=== PATIENT | male | born 1955 | race Caucasian/White ===

== ENCOUNTER 2017-07-25 22:23 | Observation (INO) | payer BC ==
[2017-07-26] LABS: Hematocrit 39 % (42-52); Mean Corpuscular HGB Conc 34 g/dl (31-36); Mean Corpuscular Hemoglobin 30 pg (27-31); Mean Corpuscular Volume 88 fL (80-94); Mean Platelet Volume 8 um3 (7.4-10.4); Red Blood Count 4.37 10^6/ul (4.0-5.4); Red Cell Distribution Width 15 % (10.5-15); White Blood Count 10.3 10^3/ul (3.5-10.8)
[2017-07-26 00:12] LABS: Albumin 3.9 g/dL (3.2-5.2); BUN/Creatinine Ratio 17.3 (8-20); Calcium 9.2 mg/dL (8.6-10.3); EGFR African American 123.8 (>60); EGFR Non-African American 96.2 (>60); Globulin 2.3 g/dL (2-4); Magnesium 1.9 mg/dL (1.9-2.7); Potassium 3.8 mmol/L (3.5-5.0); Total Bilirubin 0.7 mg/dL (0.2-1.0); Total Protein 6.2 g/dL (6.4-8.9)
--- NOTE | 2017-07-26 00:14 | ED ---
Shiela Long Emily, scribed for Thang Bray MD on 07/25/17 at 2258 . Adult Trauma - HPI Summary HPI Summary: This patient is a 62 year old M [facility] by family s/p fall that occurred at 2100. Pt reports slipping and hitting his head. Daughter reports pt losing consciousness for about 30 seconds. Pt sustained an injury while in EMS care [employer]. The patient rates the pain 2/10 in severity. Symptoms aggravated by nothing. Symptoms alleviated by nothing. Pt reports headache and R wrist pain. Patient reports flutter in heart just prior to fall. Pt reports previous injury to back while lifting heavy objects. PMHx includes MN. - History of Current Complaint Chief Complaint: EDHeadInjury Stated Complaint: FALL Time Seen by Provider: 07/25/17 22:43 Hx Obtained From: Patient, Family/Supervisor Molding Mechanism of Injury: Fall Loss of Consciousness: brief (seconds) Onset Severity: Mild Current Severity: Mild Pain Intensity: 2 Pain Scale Used: 0-10 Numeric Aggravating Factor(s): Nothing Alleviating Factor(s): Nothing Associated Signs & Symptoms: Positive: Other: - Headache - Allergy/Home Medications Allergies/Adverse Reactions: Allergies Allergy/AdvReac Type Severity Reaction Status Date / Time Sulfa Antibiotics Allergy PT CAN'T Verified 03/25/17 10:47 REMEMBER Fluoxetine [From Prozac] AdvReac manic Verified 03/25/17 10:47 NSAIDs AdvReac See Comment Verified 03/25/17 10:47 bees Allergy Anaphylatic Uncoded 03/25/17 10:47 Shock PMH/Surg Hx/FS Hx/Imm Hx Previously Healthy: No Endocrine/Hematology History: Reports: Other Endocrine/Hematological Disorders - Anemia Denies: Hx Anticoagulant Therapy, Hx Diabetes, Hx Thyroid Disease Cardiovascular History: Reports: Hx Hypercholesterolemia, Hx Hypertension, Hx Myocardial Infarction, Other Cardiovascular Problems/Disorders - Anemia; Unable to take NSAIDS d/t bleeding Denies: Hx Pacemaker/ICD Respiratory History: Denies: Hx Asthma, Hx Chronic Obstructive Pulmonary Disease (COPD) GI History: Denies: Hx Ulcer History: Reports: Hx Benign Prostatic Hyperplasia, Other Problems/ Disorders - Erectile dysfunction Denies: Hx Renal Disease Musculoskeletal History: Reports: Hx Arthritis, Hx Fibromyalgia, Hx Orthopedic Injury, Other Musculoskeletal History - disc herniation; shoulder injury Sensory History: Reports: Hx Contacts or Glasses, Hx Hearing Aid - DOESN'T WEAR ALL THE TIME Opthamlomology History: Reports: Hx Contacts or Glasses Neurological History: Reports: Hx Migraine, Other Neuro Impairments/Disorders - FIBROMYALGIA Psychiatric History: Denies: Hx Panic Disorder - Surgical History Surgery Procedure, Year, and Place: spinal stenosis - surgical repair 2001 L3- l5 ( LAMINECTOMY & MICRO DISCETOMY- 2013 @ [facility]). Rt SHOULDER - BONE SPUR REMOVED - 2011. Rt HAND - OSTEO ARTHRITIS- BASE OF THUMB EARLY 2015. SADIE KNEES - ARTHROSCOPIC. heart attack w/ stents 2006 Infectious Disease History: No Infectious Disease History: Reports: Hx of Known/Suspected MRSA Denies: Hx Clostridium Difficile, Hx Hepatitis, Hx Human Immunodeficiency Virus (HIV), Traveled Outside the [place] in Last 30 Days - Family History Known Family History: Positive: Diabetes - Social History Alcohol Use: Occasionally Hx Substance Use: Yes Substance Use Type: Reports: None Hx Tobacco Use: Yes Smoking Status (MU): Never Smoked Tobacco Review of Systems Positive: Other - "Flutter" in heart Positive: Other - R wrist pain Positive: Headache All Other Systems Reviewed And Are Negative: Yes Physical Exam Triage Information Reviewed: Yes Vital Signs On Initial Exam: Initial Vitals Temp Pulse Resp BP Pulse Ox 97 F 72 16 93/60 96 07/25/17 22:38 07/25/17 22:38 07/25/17 22:38 07/25/17 22:38 07/25/17 22:38 Vital Signs Reviewed: Yes Appearance: Positive: Well-Appearing, No Pain Distress Skin: Positive: Warm, Skin Color Reflects Adequate Perfusion, Dry, Other - Scratch on volar right wrist Head/Face: Positive: Normal Head/Face Inspection Eyes: Positive: Normal ENT: Positive: Normal ENT inspection Neck: Positive: Supple, Nontender Respiratory/Lung Sounds: Positive: Clear to Auscultation, Breath Sounds Present Cardiovascular: Positive: RRR Abdomen Description: Positive: Nontender, Soft Bowel Sounds: Positive: Present Musculoskeletal: Positive: Normal Neurological: Positive: Normal Psychiatric: Positive: Affect/Mood Appropriate - [place] Coma Scale Coma Scale Total: 15 Diagnostics - Vital Signs Vital Signs Temp Pulse Resp BP Pulse Ox 07/25/17 22:38 97 F 72 16 93/60 96 - Laboratory Lab Results: Lab Results 07/25/17 07/25/17 Range/Units 23:45 23:45 WBC 10.3 (3.5-10.8) 10^3/ul RBC 4.37 (4.0-5.4) 10^6/ul Hgb 13.0 L (14.0-18.0) g/dl Hct 39 L (42-52) % MCV 88 (80-94) fL MCH 30 (27-31) pg MCHC 34 (31-36) g/dl RDW 15 (10.5-15) % Plt Count 212 (150-450) 10^3/ul MPV 8 (7.4-10.4) um3 Neut % (Auto) 74.0 (38-83) % Lymph % (Auto) 17.2 L (25-47) % [place] % (Auto) 6.6 (1-9) % Eos % (Auto) 1.4 (0-6) % Baso % (Auto) 0.8 (0-2) % Absolute Neuts (auto) 7.6 (1.5-7.7) 10^3/ul Absolute Lymphs (auto) 1.8 (1.0-4.8) 10^3/ul Absolute Monos (auto) 0.7 (0-0.8) 10^3/ul Absolute Eos (auto) 0.1 (0-0.6) 10^3/ul Absolute Basos (auto) 0.1 (0-0.2) 10^3/ul Absolute Nucleated RBC 0.01 10^3/ul Nucleated RBC % 0 Lactic Acid 0.6 (0.5-2.0) mmol/L Result Diagrams: 07/25/17 23:45 Lab Statement: Any lab studies that have been ordered have been reviewed, and results considered in the medical decision making process. - Radiology CXR Radiology Interpretation Completed By: ED Physician - CXR read by ED physician reveals no acute changes. - CT Brain CT Interpretation Completed By: Radiologist - Brain CT read by radiologist reveals no acute rain parenchymal abnormality and no change since 01/04/16. No hemorrhage, mass or acute territorial infarct. Clear visualized paranasal sinuses. Visualized mastoid air cells clear. ED physician has read this report and agreed. - EKG 2334 Cardiac Rate: NL - 66 BPM EKG Rhythm: Sinus Rhythm Adult Trauma Course/Dx - Course Course Of Treatment: Mr. Lux felt a fluttering in his chest and then had a significant syncopal episode this evening. He hit his head and hurt his right wrist and is getting W/U'd for syncope and injury at this time. I suspect he will be admitted to the hospital for monitoring. - Diagnoses Provider Diagnoses: Syncope and collapse Discharge - Discharge Plan Condition: Stable Disposition: OTHER Discharge Disposition Comment: Change of shift The documentation as recorded by the Shiela harrison Emily accurately reflects the service I personally performed and the decisions made by me, Thang Bray MD.
[2017-07-26 00:42] LABS: TSH (Thyroid Stimulating Horm) 1.4 mcIU/mL (0.34-5.60)
[2017-07-26] MEDS ORDERED: CMCS: Melatonin (NF) 3 MG TAB PO PRN (02:40)
[2017-07-26] MEDS ORDERED: Ondansetron INJ* 2 MG/ML VIAL IV PRN (02:40)
[2017-07-26] MEDS ORDERED: Acetaminophen TAB* 325 MG PO PRN (02:40)
[2017-07-26] MEDS ORDERED: NS 0.9% 1000 ML* 1,000 ML IV SCH (02:45)
--- NOTE | 2017-07-26 02:51 | HP ---
H&P (Free Text) History and Physical: PCP: Meliza Knowles NP Date/Time: 07/26/2017 0240 CC: syncope, palpitations HPI: Mr Lux is a 62YO male HX CAD/ME who is highly somnolent unable to remain awake to answer more than one question at a time without tactile stimulation despite apparently not having received any sedating medications from ED. He was at home this evening walking into his kitchen when he felt a ' fluttering' in his chest and collapsed. His daughter witnessed the event and states he was unresponsive for less than a minute before coming to. He did hit his head, but denies chest pain, SOB, nausea, light-headeness, F/C, cough, congestion, focal W/N/T, change in speech/swallow, or other issues. EMS was called for transport. PMedHx CAD/ME HTN HLD hypertriglyceridemia fibromyalgia depression anxiety Ambulatory Orders Nursing to reconcile. Diazepam TAB(*) [Valium TAB(*)] 2 mg PO BID PRN 05/25/13 Methylphenidate ER TAB* [Concerta ER TAB*] 20 mg PO TID PRN 05/25/13 Rosuvastatin Calcium [Crestor] 20 mg PO DAILY 05/25/13 clonazePAM TAB(*) [KlonoPIN TAB(*)] 2 mg PO TID 05/25/13 Armodafinil [Nuvigil] 150 mg PO DAILY 01/04/16 Fenofibrate 130 mg PO DAILY 01/04/16 Lisinopril TAB* [Prinivil TAB*] 10 mg PO DAILY 01/04/16 Aspirin [Aspirin Adult Low Strengt] 81 mg PO DAILY 01/21/17 Cialis 01/21/17 Epinephrine [Epipen 2-Sandro] 01/21/17 Hydrocodone/Acetamin 10/325(NF [[place] 10/325 (NF)] 1 tab PO BID PRN 01/21/17 Cyclobenzaprine (NF) [Cyclobenzaprine 5 MG (NF)] 5 mg PO TID PRN 03/25/17 Allergies Sulfa Antibiotics Allergy (Verified 03/25/17 10:47) PT CAN'T REMEMBER Fluoxetine [From Prozac] Adverse Reaction (Verified 03/25/17 10:47) manic NSAIDs Adverse Reaction (Verified 05/24/17 10:47) See Comment pt states Unable to take d/t bleeding risk bees Allergy (Uncoded 03/25/17 10:47) Anaphylatic Shock SocHx: denies tobacco, ~6 beers/week alcohol, positive marijuana; going through a divorce, lives with his daughter; on disability for chronic LBP; full code status FamHx: Mother: "crazy"; Father: passed in his 90's 2nd complications of a fall ROS: as above, otherwise reviewed and all were negative vitals: Vital Signs Temp 36.1 C 07/25/17 22:38 Pulse 59 07/26/17 01:20 Resp 14 07/26/17 01:20 BP 99/66 07/26/17 01:19 Pulse Ox 93 07/26/17 01:20 Constitutional: NAD, normally developed, well-nourished white male HEENM: atraumatic; sclera/conjunctiva: non-icteric/clear; hearing: clinically intact; oropharynx: clear, mucosa moist Neck: soft tissue: non-tender; thyroid: normal Pulmonary: clear to auscultation bilaterally, good aeration, no accessory muscle use CV: RR/RR, normal S1S2, no carotid bruit, no jugular venous distention, 2+ B DP/ PT, no edema Abdominal: soft, non-distended, non-tender, no rebound/guarding/rigidity, normoactive bowel sounds, no hepatosplenomegaly or masses, no costovertebral angle tenderness Musculoskeletal: general: grossly intact, no palpable tenderness Integumental: normal appearance and texture of exposed skin Psychiatric orientation: somnolent, requires repetitive tactile stimulation to participate in H&P affect: calm mood: acquiescent eye contact: poor content: at least partially reliable responses: markedly slowed insight: poor Testing: Lab Results 07/25/17 07/25/17 07/25/17 Range/Units 23:45 23:45 23:45 WBC 10.3 (3.5-10.8) 10^3/ul RBC 4.37 (4.0-5.4) 10^6/ul Hgb 13.0 L (14.0-18.0) g/dl Hct 39 L (42-52) % MCV 88 (80-94) fL MCH 30 (27-31) pg MCHC 34 (31-36) g/dl RDW 15 (10.5-15) % Plt Count 212 (150-450) 10^3/ul MPV 8 (7.4-10.4) um3 Neut % (Auto) 74.0 (38-83) % Lymph % (Auto) 17.2 L (25-47) % [place] % (Auto) 6.6 (1-9) % Eos % (Auto) 1.4 (0-6) % Baso % (Auto) 0.8 (0-2) % Absolute Neuts (auto) 7.6 (1.5-7.7) 10^3/ul Absolute Lymphs (auto) 1.8 (1.0-4.8) 10^3/ul Absolute Monos (auto) 0.7 (0-0.8) 10^3/ul Absolute Eos (auto) 0.1 (0-0.6) 10^3/ul Absolute Basos (auto) 0.1 (0-0.2) 10^3/ul Absolute Nucleated RBC 0.01 10^3/ul Nucleated RBC % 0 INR (Anticoag Therapy) 0.95 (0.89-1.11) Sodium 137 (133-145) mmol/L Potassium 3.8 (3.5-5.0) mmol/L Chloride 106 (101-111) mmol/L Carbon Dioxide 25 (22-32) mmol/L Anion Gap 6 (2-11) mmol/L BUN 14 (6-24) mg/dL Creatinine 0.81 (0.67-1.17) mg/dL Est GFR ( Amer) 123.8 (>60) Est GFR (Non-Af Amer) 96.2 (>60) BUN/Creatinine Ratio 17.3 (8-20) Glucose 96 (70-100) mg/dL Lactic Acid (0.5-2.0) mmol/L Calcium 9.2 (8.6-10.3) mg/dL Magnesium 1.9 (1.9-2.7) mg/dL Total Bilirubin 0.70 (0.2-1.0) mg/dL AST 12 L (13-39) U/L ALT 8 (7-52) U/L Alkaline Phosphatase 42 (34-104) U/L Troponin I 0.00 (<0.04) ng/mL Total Protein 6.2 L (6.4-8.9) g/dL Albumin 3.9 (3.2-5.2) g/dL Globulin 2.3 (2-4) g/dL Albumin/Globulin Ratio 1.7 (1-3) TSH 1.40 (0.34-5.60) mcIU/mL 07/25/17 Range/Units 23:45 WBC (3.5-10.8) 10^3/ul RBC (4.0-5.4) 10^6/ul Hgb (14.0-18.0) g/dl Hct (42-52) % MCV (80-94) fL MCH (27-31) pg MCHC (31-36) g/dl RDW (10.5-15) % Plt Count (150-450) 10^3/ul MPV (7.4-10.4) um3 Neut % (Auto) (38-83) % Lymph % (Auto) (25-47) % [place] % (Auto) (1-9) % Eos % (Auto) (0-6) % Baso % (Auto) (0-2) % Absolute Neuts (auto) (1.5-7.7) 10^3/ul Absolute Lymphs (auto) (1.0-4.8) 10^3/ul Absolute Monos (auto) (0-0.8) 10^3/ul Absolute Eos (auto) (0-0.6) 10^3/ul Absolute Basos (auto) (0-0.2) 10^3/ul Absolute Nucleated RBC 10^3/ul Nucleated RBC % INR (Anticoag Therapy) (0.89-1.11) Sodium (133-145) mmol/L Potassium (3.5-5.0) mmol/L Chloride (101-111) mmol/L Carbon Dioxide (22-32) mmol/L Anion Gap (2-11) mmol/L BUN (6-24) mg/dL Creatinine (0.67-1.17) mg/dL Est GFR ( Amer) (>60) Est GFR (Non-Af Amer) (>60) BUN/Creatinine Ratio (8-20) Glucose (70-100) mg/dL Lactic Acid 0.6 (0.5-2.0) mmol/L Calcium (8.6-10.3) mg/dL Magnesium (1.9-2.7) mg/dL Total Bilirubin (0.2-1.0) mg/dL AST (13-39) U/L ALT (7-52) U/L Alkaline Phosphatase (34-104) U/L Troponin I (<0.04) ng/mL Total Protein (6.4-8.9) g/dL Albumin (3.2-5.2) g/dL Globulin (2-4) g/dL Albumin/Globulin Ratio (1-3) TSH (0.34-5.60) mcIU/mL ECG, personally reviewed: NSR rate 66, no ischema, elevated J-point in V2 CXR, personally reviewed: no acute process CT brain WO, personally reviewed: No acute brain parenchymal abnormality and no change since 01/04/16. No hemorrhage, mass, or acute territorial infarct. Clear visualized paranasal sinuses. Visualized mastoid air cells clear. Impression: 62M presenting with syncope associated with palpitations DIAGNOSIS & PLAN Primary syncope associated with palpitations : telemetry : trend troponin : check ECHO in AM : consider cardiology consult pending above results : supplemental oxygen : supportive care Secondary CAD/ME : review meds once reconciled HTN : review meds once reconciled HLD : review meds once reconciled hypertriglyceridemia : review meds once reconciled fibromyalgia : review meds once reconciled depression : review meds once reconciled anxiety : review meds once reconciled Admission Rational: CDU observation for syncopal work up DVTp: heparin SQ Code Status: full HCP: daughterGris
--- NOTE | 2017-07-26 05:48 | ED ---
Hanna Long Rebecca, scribed for Mike Hobbs on 07/26/17 at 0218 . Progress - Progress Note Progress Note: Pt was signed out from Dr. Bray, pending disposition, awaiting labs. - Results/Orders Results/Orders: Wrist XR, as read by ED physician, reveals no acute findings. Re-Evaluation - Re-Evaluation First Eval Re-Evaluation Time: 02:17 Comment: Discussed admission plan. Course/Dx - Course Course Of Treatment: Pt was signed out from Dr. Bray at shift change, pending disposition, awaiting labs. Upon lab work being returned, discussed care of pt with Dr. Oscar who accepts pt for admission. Pt will be admitted with Dx of syncope, palpitations and head injury. Pt's condition is stable and disposition is admitted. He understands and agrees. - Diagnoses Provider Diagnoses: Syncope, Palpitations, Head injury - Provider Notifications Discussed Care Of Patient With: Pankaj Oscar Time Discussed With Above Provider: 02:12 Instructed by Provider To: Other - Accepts pt for admission The documentation as recorded by the Hanna harrison Rebecca accurately reflects the service I personally performed and the decisions made by , Mike Hobbs.
[2017-07-26] MEDS ORDERED: Omeprazole CAP* 20 MG PO SCH (06:00)
--- NOTE | 2017-07-26 08:18 | PN ---
Subjective Date of Service: 07/26/17 Interval History: Mr. Lux reports a different story than that which was presented in the ED last evening. Per him, he has been under extreme stress due to issues with his divorce and raising his child. He also has an underlying anxiety disorder. Last night he had a panic attack and felt his normal discomfort in his chest that he has gotten in the past. He got up to walk into the kitchen and when he stepped onto the tile floor from the carpet, he slipped. He thinks he hit his head and was unconcious for perhaps 30 seconds. He remembers his daughter being there and asking her to call EMS. He states that he is feeling very well this morning and denies any complaint. He is eager for discharge to home. Objective Active Medications: Acetaminophen (Tylenol Tab*) 650 mg PO Q6H PRN Docusate Sodium (Colace Cap*) 200 mg PO BID JOSE Heparin Sodium (Porcine) (Heparin Vial(*)) 5,000 units SUBCUT Q8HR JOSE Sodium Chloride (Ns 0.9% 1000 Ml*) 1,000 mls @ 75 mls/hr IV PER RATE [facility] Melatonin (Melatonin (Nf)) 3 mg PO BEDTIME PRN; Protocol Omeprazole (Prilosec Cap*) 20 mg PO DAILY@0600 JOSE Ondansetron HCl (Zofran Inj*) 4 mg IV Q6H PRN Vital Signs: Temp Pulse Resp BP Pulse Ox 97.5 F 65 18 115/70 97 07/26/17 03:13 07/26/17 03:13 07/26/17 03:30 07/26/17 03:30 07/26/17 03:13 Oxygen Devices in Use Now: None Appearance: Male sitting up in chair in NAD Eyes: No Scleral Icterus Ears/Nose/Mouth/Throat: Mucous Membranes Moist Neck: Trachea Midline Respiratory: Symmetrical Chest Expansion and Respiratory Effort, Clear to Auscultation Cardiovascular: NL Sounds; No Murmurs; No JVD, No Edema Abdominal: NL Sounds; No Tenderness; No Distention Lymphatic: No Cervical Adenopathy Extremities: No Edema Skin: No Rash or Ulcers Neurological: Alert and Oriented x 3, NL Muscle Strength and Tone Nutrition: Taking PO's Result Diagrams: 07/25/17 23:45 07/25/17 23:45 Additional Lab and Data: . Assess/Plan/Problems-Billing Assessment: Mr. Lux is a 62 yo male with a PMH of CAD with FL, HTN, and HLD who was admitted on 07/25/17 with panic attack in which he fell and was unconcious. - Patient Problems (1) Syncope Comment: - No description of syncope given. - No echo needed, suspect symptoms all related to anxiety and panic attack. - Telemetry without evidence of arrhythmmia, trops negative (2) Palpitations Comment: - Suspect panic attack, symptoms consistent with history of patient's anxiety in the past. - Telemetry with SR, trops negative. (3) Anxiety Comment: - Though patient seemed sedated in the ED, patient's family states this is his normal behavior. - He is awake and alert now, denies any misuse of his medications. (4) CAD (coronary artery disease) Comment: - Continue aspirin. (5) Hypertension Comment: - Continue lisinopril. (6) Hyperlipidemia Comment: - Continue fenofibrate and rosuvastatin. (7) DVT prophylaxis Comment: - Heparin SQ. (8) Full code status Status and Disposition: OBV. Discharge to home.
--- NOTE | 2017-07-26 08:22 | RAD ---
Indication: Syncope. Real-time sonography of the brain was performed. Comparison is made with previous exam dated January 04, 2016. Ventricular structures are midline. No midline shift is noted. The extra-axial spaces are unremarkable. There is no evidence of intracranial mass or hemorrhage. No other high or low density lesions are identified. Mastoid air cells and paranasal sinuses are otherwise unremarkable. IMPRESSION: No intracranial mass or hemorrhage.
--- NOTE | 2017-07-26 08:22 | RAD ---
Indication: Right wrist injury 3 views of the wrist demonstrates no fracture. No other bone or joint abnormality is identified. Chondrocalcinosis is noted. IMPRESSION: NO FRACTURE OF THE WRIST IS NOTED.
--- NOTE | 2017-07-26 08:23 | RAD ---
Indication: Syncope. 2 views of the chest demonstrate no mediastinal shift. Heart is of normal size and configuration. Lung fontaine demonstrate no pleural fluid, pneumonia or pneumothorax. When compared to previous exam of January 04, 2016 no significant change is noted. IMPRESSION: No active cardiopulmonary disease is noted.
[2017-07-26] MEDS ORDERED: Docusate CAP* 100 MG PO SCH (09:00)
[2017-07-26] MEDS ORDERED: HYDROcodone/ACETAMIN 5-325 MG* 1 TAB PO PRN ×2 (09:12)
[2017-07-26 12:23] VITALS: BP 128/71
[2017-07-26] MEDS ORDERED: Hydrocodone/Acetamin 10/325 1 TAB PO PRN (12:33)
[2017-07-26] MEDS ORDERED: Methylphenidate ER TAB* 18 MG PO PRN (12:33)
[2017-07-26 13:20] LABS: Urine Bilirubin Negative (Negative); Urine Glucose Negative (Negative); Urine Nitrite Negative (Negative)
[2017-07-26] MEDS ORDERED: clonazePAM TAB(*) 1 MG PO SCH (14:00)
--- NOTE | 2017-07-27 00:08 | DS ---
CC: Jeri Knowles NP* HOSPITAL MEDICINE DISCHARGE SUMMARY: DATE OF ADMISSION: 07/25/17 DATE OF DISCHARGE: 07/26/17 PRIMARY CARE PHYSICIAN: Jeri Knowles NP ATTENDING PHYSICIAN: Jasmeet Strange MD* (dictation provided by Nelly Bowman NP) . PRIMARY DIAGNOSIS: Panic attack. SECONDARY DIAGNOSES: 1. History of anxiety. 2. History of coronary artery disease with myocardial infarction. 3. Hypertension. 4. Hyperlipidemia. 5. Hypertriglyceridemia. 6. Fibromyalgia. 7. Depression. MEDICATIONS: At the time of discharge: 1. Methylphenidate 20 mg p.o. daily p.r.n. The patient states he does not use this very often. 2. Armodafinil 150 mg p.o. daily. 3. Epinephrine as needed for allergic reaction. 4. Fenofibrate 130 mg p.o. daily. 5. Rosuvastatin 20 mg p.o. daily. 6. Aspirin 81 mg p.o. daily. 7. Hydrocodone with acetaminophen 10/325 one tab p.o. t.i.d. p.r.n. 8. Lisinopril 10 mg p.o. daily. 9. Clonazepam 2 mg p.o. t.i.d. HOSPITAL COURSE: Mr. Lux is a 62-year-old male with past medical history of anxiety who presented to the hospital after falling and being unconscious briefly at home on 07/26/17. Please see the dictated H and P from Dr. Pankaj Oscar for complete details. In brief, at the time of admission, very limited information was available. It was thought that the patient had palpitations, which led to a syncopal episode; however, today the patient states that he clearly remembers that he was under extreme stress yesterday related to a pending divorce. He felt very anxious and describes feeling that he was in the midst of panic attack. He had discomfort in his chest, which is entirely consistent with all his previous episodes of panic. He went to walk from a carpeted floor on to a tile floor and slipped and fell. He states he hit his head. He was unconscious for perhaps less than30 seconds. His daughter was there and when he awoke, he asked for her to call EMS. In the emergency room, the patient's CT of the brain was normal. He is on not any anticoagulants. He also had a wrist x-ray, which showed no fracture, but had initial concern for syncope what was described as syncope with palpitations. The patient was observed in the hospital overnight. Mr. Lux has no evidence of arrhythmia on telemetry. His troponins have all been negative. Now that it is clear that he did not actually have a syncopal episode or clearly describe palpitations but rather seems to be describing the panic attack, I think no further workup is indicated. The patient is doing well now. There is concern in the emergency room that the patient was sedated and perhaps that he was misusing clonazepam. I reviewed this with the patient and his family. They have no concern that he is misusing the medication and states that sometimes he is very, very somnolent related to his various psychological problems. DISPOSITION: To home. DIET: Low fat, low salt. ACTIVITY: As tolerated. FOLLOWUP PLANS: Please follow up with Jeri Knowles NP after this observation stay in the hospital. TIME SPENT: Approximately 60 minutes were spent in the discharge of this patient, more than half the time was spent with the patient at the bedside reviewing the events leading up to this hospitalization, performing the physical examination, and reviewing the plan of care. NELLY BOWMAN NP [id number]/[facility] #: [id number] [place]
[2017-07-27] MEDS ORDERED: Heparin VIAL(*) 5000 UNITS/ML VIAL (FIVE THOUSAND) SUBCUT SCH (06:00)
[2017-07-27] MEDS ORDERED: Lisinopril TAB* 10 MG PO SCH (09:00)
[2017-07-27] MEDS ORDERED: Aspirin Low Dose CHEW TAB* 81 MG PO SCH (09:00)
== END 2017-07-26 13:25 | disposition home or self-care (01) ==
LOC: ED 22:23 → MEDTELE 07-26 02:38
PROVIDERS: ADMIT Hospitalist; ATTEND Internal Medicine
DX: F41.0 Panic disorder [episodic paroxysmal anxiety] (principal); R55 Syncope and collapse; R00.2 Palpitations; I10 Essential (primary) hypertension; I25.10 Atherosclerotic heart disease of native coronary artery without angina pectoris; I25.2 Old myocardial infarction; E78.5 Hyperlipidemia, unspecified; E78.1 Pure hyperglyceridemia; M79.7 Fibromyalgia; F32.9 Major depressive disorder, single episode, unspecified; Z79.82 Long term (current) use of aspirin; Z79.899 Other long term (current) drug therapy; Z88.8 Allergy status to other drugs, medicaments and biological substances; Z88.2 Allergy status to sulfonamides; R94.31 Abnormal electrocardiogram [ECG] [EKG]
CPT/HCPCS: 36415; 70450; 71020; 80053; 81003; 83605; 83735; 84443; 84484; 85025; 85610; 93005; 94760; 99284; A9270-GY; G0378

== ENCOUNTER 2020-01-05 12:42 | Emergency (ER) | payer MEDICARE, OTHER ==
--- OUTSIDE RECORDS SUMMARY | 2020-01-05 13:06 | XMS REPORT | Continuity of Care Document ---
:1955 External Reference #:[id number] Author Name Ramone Madera MD Address [address] [place], [place] [id number] Problems Active Problems Provider Date Pure hypercholesterolemia KALEB Grace Onset: 10/03/2015 Essential hypertension KALEB Grace Onset: 10/03/2015 Social History Type Date Description Comments Sex Unknown Tobacco Use Start: Unknown Never Smoked Cigarettes ETOH Use Denies alcohol use Tobacco Use Start: Unknown Patient has never smoked Recreational Drug Use Regularly uses Marijuana Allergies, Adverse Reactions, Alerts Active Allergies Reaction Severity Comments Date Prozac 07/04/2015 Sulfa 07/04/2015 Bee Sting 07/15/2015 Geodon depressed QT 05/20/2018 Medications Active Medications SIG Qnty Indications Ordering Date Provider Klonopin 1 tab by mouth four 120tabs Ramone 12/08/2019 1mg Tablets times a day MD Santy Sildenafil Citrate Take 1 To 2 Tablets 30tabs Ramone 03/18/2019 By Mouth 1 Hour MD Santy 20mg Tablets Prior To [facility] Aspirin Ec 1 by mouth every 90tabs Jeri Hernandez, 07/15/2015 81mg day CLEARING DISTRIBUTION CLERK-C Tablets Fenofibrvannesa Hernandez, 07/15/2015 Micronized CLEARING DISTRIBUTION CLERK-C 130mg Capsules Nitrostat 1 tab sublingual as 15tabs Jeri Hernandez, 07/15/2015 0.4mg needed for chest CLEARING DISTRIBUTION CLERK-C Tablets Sub pain Colchicine take 2 tablets by 30tabs Quita Bowman, 07/15/2015 0.6mg mouth today, then 1 PHOTO LAB SPECIALIST Tablets tablet by mouth twice daily x 7 days. Lisinopril Take 1 Tablet By 90tabs Jeri David, 07/15/2015 10mg Mouth Every Day CLEARING DISTRIBUTION CLERK-C Tablets Epipen 2-Sandro use as directed 1units Jeri David, 07/04/2015 CLEARING DISTRIBUTION CLERK-C 0.3mg/0.3ML Solution Auto-Inject Diazepam 1 tablet at onset Unknown 2mg Tablets of migraine prn. Tylenol 3 - as needed Unknown 325mg Capsules Aripiprazole 1 tab by mouth 90tabs Ramone 5mg every at bedtime MD Santy Tablets Immunizations CPT Code Status Date Vaccine Lot # [id number] Given 08/31/2018 Influenza Virus Vaccine, Quadrivalent, 3 Yr > [id number] Quad, Preserv Free 63443 Given 08/12/2017 Influenza Virus Vaccine, Quadrivalent, 3 Yr > [id number] Quad, Preserv Free [id number] Given 09/22/2016 Influenza Virus Vaccine, Quadrivalent, 3 Yr > [id number] Quad, Preserv Free 05360 Given 09/04/2015 Zoster Vaccine [id number] Given 07/04/2015 Influenza Virus Vaccine, Quadrivalent, 3 Yr > [id number] Quad, Preserv Free Vital Signs Date Vital Result Comment 12/08/2019 9:17am Weight 171.00 lb Weight 77.566 kg BP Systolic 102 mmHg BP Diastolic 64 mmHg Heart Rate 49 /min Body Temperature 98.7 F Respiratory Rate 16 /min O2 % BldC Oximetry 98 % 09/06/2018 5:04pm Weight 177.00 lb Weight 80.287 kg BP Systolic 130 mmHg BP Diastolic 80 mmHg Heart Rate 90 /min Body Temperature 99.2 F Respiratory Rate 16 /min O2 % BldC Oximetry 98 % Results Description No Information Available Procedures Description No Information Available Medical Devices Description No Information Available Encounters Description No Information Available Assessments Date Code Description Provider 12/08/2019 F41.9 Anxiety disorder, unspecified Ramone Madera MD 12/08/2019 R53.82 Chronic fatigue, unspecified Ramone Madera MD Plan of Treatment 12/08/2019 - Ramone Madera MDF41.9 Anxiety disorder, unspecifiedComments:I discussed that I try to avoid combining narcotics and benzodiazepines. The plan will be a very gradual decreasing taper of the medication and eventual cessation , assuming he does not find a psychiatrist who comes up with a different plan in the meantime. We went from 2 mg BID to 1 mg QID for a month. After a month the plan will be 1 mg TID, and to continue a gradual decrease until complete cessation. I refilled his abilify at it's current dosage. Checking millenium testing to verify correct usage of his medication and check for illicits.Follow up:request records from Dr. Saunders.82 Chronic fatigue, unspecifiedComments: He wants to go back on Adderall, but with his history of stress exacerbated heart disease this seemsmanifestly unsafe.Follow up:Refer to neurology for daytime sleepiness Functional Status Description No Information Available Mental Status Description No Information Available Referrals Description No Information Available
--- OUTSIDE RECORDS SUMMARY | 2020-01-05 13:06 | XMS REPORT | Continuity of Care Document ---
:1955 External Reference #:[id number] Author Name Ramone Madera MD Address [address] [place] [address] Problems Active Problems Provider Date Pure hypercholesterolemia [...] by mouth four 120tabs Ramone 12/08/2019 1mg times a day MD Santy Tablets Sildenafil Citrate Take 1 To 2 Tablets 30tabs Ramone 03/18/2019 By Mouth 1 Hour MD Santy 20mg Tablets Prior To [place] Aspirin Ec 1 by mouth every 90tabs Jeri Hernandez, 07/15/2015 81mg day REGISTERED SAFETY ENGINEER-C Tablets DR Christiana Hernandez, 07/15/2015 Micronized REGISTERED SAFETY ENGINEER-C 130mg Capsules Nitrostat 1 tab sublingual as 15tabs Jeri Hernandez, 07/15/2015 0.4mg needed for chest REGISTERED SAFETY ENGINEER-C Tablets Sub pain Colchicine take 2 tablets by 30tabs Quita Bowman, 07/15/2015 0.6mg mouth today, then 1 FAMILY LAW ATTORNEY Tablets tablet by mouth twice daily x 7 days. Lisinopril Take 1 Tablet By 90tabs Jeri Hernandez, 07/15/2015 10mg Mouth Every Day REGISTERED SAFETY ENGINEER-C Tablets Epipen 2-Sandro use as directed 1units Jeri David, 07/04/2015 REGISTERED SAFETY ENGINEER-C 0.3mg/0.3ML Solution Auto-Inject Diazepam 1 tablet at onset Unknown 2mg of migraine prn. Tablets Tylenol 3 - as needed Unknown 325mg Capsules Immunizations CPT Code Status Date Vaccine Lot # [id number] Given 12/20/2019 Prevnar-13 Pneumococcal Conjugate Vaccine [id number] 17740 Given 09/22/2019 Influenza Virus Vaccine, Quadrivalent, 3 Yr > Quad, Preserv Free 76314 Given 08/31/2018 Influenza Virus Vaccine, Quadrivalent, 3 Yr > [id number] Quad, Preserv Free 75226 Given 08/12/2017 Influenza Virus Vaccine, Quadrivalent, 3 Yr > [id number] Quad, Preserv Free 11156 Given 09/22/2016 Influenza Virus Vaccine, Quadrivalent, 3 Yr > [id number] Quad, Preserv Free 70043 Given 09/04/2015 Zoster Vaccine [id number] 39763 Given 07/04/2015 Influenza Virus Vaccine, Quadrivalent, 3 Yr > [id number] Quad, Preserv Free Vital Signs Date Vital Result Comment 12/20/2019 12:48pm Weight 168.00 lb Weight 76.205 kg BP Systolic 102 mmHg BP Diastolic 68 mmHg Heart Rate 60 /min Body Temperature 99.0 F Respiratory Rate 14 /min Height 71 inches 5'11" BMI (Body Mass Index) 23.4 kg/m2 12/08/2019 9:17am Weight 171.00 lb Weight 77.566 kg BP Systolic 102 mmHg BP Diastolic 64 mmHg Heart Rate 49 /min Body Temperature 98.7 F Respiratory Rate 16 /min O2 % BldC Oximetry 98 % Results Test Acquired Date Facility Test Result H/L Range Note Laboratory test 12/20/2019 [facility] PSA Screening < pending> finding [phone] Procedures Description No Information Available Medical Devices Description No Information Available Encounters Type Date Location Provider Dx Diagnosis Office Visit 12/08/2019 Tarun Madera, F41.9 Anxiety disorder, 9:45a unspecified R53.82 Chronic fatigue, unspecified Assessments Date Code Description Provider 12/20/2019 Z00.00 Encounter for general adult medical Ramone Heetderks, MD examination without abnormal findings 12/20/2019 R53.82 Chronic fatigue, unspecified Ramone Madera MD 12/20/2019 N40.1 Benign prostatic hyperplasia with lower Ramone Madera MD urinary tract symptoms 12/08/2019 F41.9 Anxiety disorder, robertified Ramone Madera MD 12/08/2019 R53.82 Chronic fatigue, unspecified Ramone Madera MD Plan of Treatment 12/20/2019 - Ramone Madera MDZ00.00 Encounter for general adult medical examination without abnormal [id number] Chronic fatigue, unspecifiedComments :Updating some labs.N40.1 Benign prostatic hyperplasia with lower urinary tract symptomsComments:He is getting some urinary symptoms. We will check a PSA. If it is within normal limits, we will start him on a alpha jatin. If elevated he will need to see urology. Functional Status Description No Information Available Mental Status Description No Information Available Referrals Refer to Dr Reason for Referral Status Appt Date Liban Pak Refer to neurology for daytime sleepiness. - - Scheduled 03/22/2020 Please contact Pt to schedule appt. - - Please fax appointment date/time to [facility], [phone]. [address] [place] [address] [phone]
--- NOTE | 2020-01-05 14:25 | ED ---
Psychiatric Complaint - HPI Summary HPI Summary: Patient is a 64 y/o M presenting to the ED via EMS for a psychiatric complaint. Patient complains of confusion and fatigue "from life." He states he is confused about what to do with his life. He notes stress from his special needs daughter and who has dementia moving to [place] in November 2017. 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 Patient denies weakness, blurred vision, sudden blindness, changes in vision or hearing, chest pain, shortness of breath , SI, or HI. No alleviating factors are reported. PMHx is significant for back problem and MT. Dr. Madera, his PCP, last saw the patient 2 weeks ago for an annual follow up. At that time, he had bloodwork performed that showed anemia. - History Of Current Complaint Chief Complaint: EDPsychosocial Time Seen by Provider: 01/05/20 14:16 Hx Obtained From: Patient Onset/Duration: Sudden Onset, Still Present Timing: Constant Severity Initially: Moderate Severity Currently: Moderate Aggravating Factor(s): Recent Stress Alleviating Factor(s): Nothing Associated Signs And Symptoms: Positive: Negative Has Suicidal: Denies: Thoughts Has Homicidal: Denies: Thoughts - Allergies/Home Medications Allergies/Adverse Reactions: Allergies Allergy/AdvReac Type Severity Reaction Status Date / Time fluoxetine [From Prozac] Allergy manic Verified 01/05/20 13:01 behavior NSAIDS (Non-Steroidal Allergy doesn't Verified 01/05/20 13:01 Anti-Inflamma take D/T bleeding risk Sulfa (Sulfonamide Allergy Unknown Verified 01/05/20 13:01 Antibiotics) Reaction Details bees Allergy Anaphylatic Uncoded 01/05/20 13:01 Shock Home Medications: Home Medications clonazePAM TAB(*) [Klonopin TAB(*)] 2 mg PO TID 05/25/13 [History Confirmed 08/21] Lisinopril TAB* [Prinivil TAB 10 MG*] 10 mg PO DAILY 01/04/16 [History Confirmed 11/11/19] Aspirin 81 mg PO DAILY 01/21/17 [History Confirmed 11/11/19] EPINEPHrine [Epipen 2-Sandro] 0.3 mg IM ONCE PRN 01/21/17 [History Confirmed ] HydroCODONE/Acetamin 10/325 NF [Sanger 10/325 (NF)] 1 tab PO BID PRN MDD 2 [History Confirmed 11/11/19] Fenofibrate(NF) 130 mg PO DAILY 01/11/18 [History Confirmed 11/11/19] Dextroamphetamine/Amphetamine [Adderall 20 mg Tablet] 1 tab PO DAILY 05/04/19 [ History Confirmed 11/11/19] Sildenafil (NF) [Viagra (NF)] 25 mg PO DAILY 10/13/19 [History Confirmed ] PMH/Surg Hx/FS Hx/Imm Hx Previously Healthy: Yes Endocrine/Hematology History: Reports: Other Endocrine/Hematological Disorders - Anemia Denies: Hx Anticoagulant Therapy, Hx Diabetes, Hx Thyroid Disease Cardiovascular History: Reports: Hx Hypercholesterolemia, Hx Hypertension, Hx Myocardial Infarction, Other Cardiovascular Problems/Disorders - Anemia; Unable to take NSAIDS d/t bleeding Denies: Hx Pacemaker/ICD Respiratory History: Denies: Hx Asthma, Hx Chronic Obstructive Pulmonary Disease (COPD) GI History: Denies: Hx Ulcer History: Reports: Hx Benign Prostatic Hyperplasia, Other Problems/ Disorders - Erectile dysfunction Denies: Hx Renal Disease Musculoskeletal History: Reports: Hx Arthritis, Hx Fibromyalgia, Hx Orthopedic Injury, Other Musculoskeletal History - disc herniation; shoulder injury Sensory History: Reports: Hx Contacts or Glasses, Hx Hearing Aid Denies: Hx Legally Blind, Hx Deafness Opthamlomology History: Reports: Hx Contacts or Glasses Denies: Hx Legally Blind EENT History: Denies: Hx Deafness Neurological History: Reports: Hx Migraine, Other Neuro Impairments/Disorders - FIBROMYALGIA Psychiatric History: Denies: Hx Panic Disorder - Surgical History Surgical History: Yes Surgery Procedure, Year, and Place: spinal stenosis - surgical repair 2001 L3- l5 ( LAMINECTOMY & MICRO DISCETOMY- 2013 @ [facility]). Rt SHOULDER - BONE SPUR REMOVED - 2011. Rt HAND - OSTEO ARTHRITIS- BASE OF THUMB EARLY 2015. SADIE KNEES - ARTHROSCOPIC. heart attack w/ stents 2006 Infectious Disease History: Yes Infectious Disease History: Reports: Hx of Known/Suspected MRSA Denies: Hx Clostridium Difficile, Hx Hepatitis, Hx Human Immunodeficiency Virus (HIV), Traveled Outside the in Last 30 Days - Family History Known Family History: Positive: Diabetes - Social History Occupation: Retired Lives: Alone Alcohol Use: Occasionally Alcohol Amount: 7 Hx Substance Use: Yes Substance Use Type: Reports: None Hx Tobacco Use: Yes Smoking Status (MU): Former Smoker Have You Smoked in the Last Year: No Review of Systems Positive: Fatigue Negative: Blurred Vision, Other - Negative changes in vision or sudden blindness Negative: Other - Negative changes in hearing Negative: Chest Pain Negative: Shortness Of Breath Neurological/Mental Status: Other - Positive confusion Negative: Weakness Negative: Other - Negative SI or HI All Other Systems Reviewed And Are Negative: Yes Physical Exam - Summary Physical Exam Summary: Constitutional: Well-developed, Well-nourished, Alert. (-) Distressed Skin: Warm, Dry HENT: Normocephalic; Atraumatic Eyes: Conjunctiva normal Neck: Musculoskeletal ROM normal neck. (-) JVD, (-) Stridor, (-) Tracheal deviation Cardio: Rhythm regular, rate normal, Heart sounds normal; Intact distal pulses; The pedal pulses are 2+ and symmetric. Radial pulses are 2+ and symmetric. Pulmonary/Chest wall: Effort normal. (-) Respiratory distress, (-) Wheezes, (-) Rales Abd: Soft, (-) tenderness, (-) Distension, (-) Guarding, (-) Rebound Musculoskeletal: (-) Edema Neuro: Alert, Oriented x3. Normal neurological exam. Psych: Mood and affect Normal Triage Information Reviewed: Yes Vital Signs On Initial Exam: Initial Vitals Temp Pulse Resp BP Pulse Ox 97.6 F 76 20 131/76 100 01/05/20 12:45 01/05/20 12:45 01/05/20 12:45 01/05/20 12:45 01/05/20 12:45 Vital Signs Reviewed: Yes Procedures - Sedation Patient Received Moderate/Deep Sedation with Procedure: No Diagnostics - Vital Signs Vital Signs Temp Pulse Resp BP Pulse Ox 01/05/20 12:45 97.6 F 76 20 131/76 100 - Laboratory Result Diagrams: 01/05/20 14:25 01/05/20 14:25 Lab Statement: Any lab studies that have been ordered have been reviewed, and results considered in the medical decision making process. Re-Evaluation - Re-Evaluation First Eval Re-Evaluation Time: 14:52 Change: Unchanged Comment: At 14:52, patient is medically cleared for a mental health evaluation. Course/Dx - Course Course Of Treatment: Patient is a 64 y/o M presenting to the ED via EMS for a psychiatric complaint. Patient complains of confusion and fatigue "from life." He states he is confused about what to do with his life. He notes stress from his daughter and moving to [place] in November 2017. Patient denies weakness , blurred vision, sudden blindness, changes in vision or hearing, chest pain, shortness of breath, SI, or HI. No alleviating factors are reported. PMHx is significant for back problem and MT. On exam, unremarkable, including normal neurological exam. Laboratory abnormal findings: opiate and benzodiazepines positive. All other abnormal lab results are not pertinent to current cc. At 18:17, climatologist reports that Dr. Delfino Vanegas reviewed the patients case and will discharge the patient with a diagnosis of substance use disorder and depression. Patient will be discharged with a diagnosis of substance use disorder and depression. - Differential Dx/Clinical Impression Provider Diagnosis: Depression, Substance use disorder - Physician Notifications Discussed Care Of Patient With: Delfino Vanegas - At 18:17, climatologist reports that Dr. Delfino Vanegas reviewed the patients case and will discharge the patient with a diagnosis of substance use disorder and depression. Time Discussed With Above Provider: 18:17 Instructed by Provider To: Other - Discharge Discharge ED - Sign-Out/Discharge Documenting (check all that apply): Patient Departure - Discharge - Discharge Plan Condition: Stable Disposition: HOME Referrals: Ramone Madera MD [Primary Care Provider] - - Billing Disposition and Condition Condition: STABLE Disposition: Home - Attestation Statements Document Initiated by Charles: Yes Documenting Scribe: Jeri Vasquez Provider For Whom Charles is Documenting (Include Credential): Mustapha Polk MD Scribe Attestation: Jeri Long scribed for Mustapha Polk MD on 01/05/20 at 1900. Scribe Documentation Reviewed: Yes Provider Attestation: The documentation as recorded by the Jeri harrison accurately reflects the service I personally performed and the decisions made by me, Mustapha Polk MD Status of Scribe Document: Viewed
[2020-01-05 14:41] LABS: ABS Basophils 0.1 10^3/ul (0-0.2); ABS Eosinophils 0.1 10^3/ul (0-0.6); ABS Lymphocytes 1.4 10^3/ul (1.0-4.8); ABS Monocytes 0.4 10^3/ul (0-0.8); Eosinophil % 1.6 %; Hematocrit 37 % (42-52); Hemoglobin 12.4 g/dL (14.0-18.0); Lymphocyte % 20.8 %; Mean Corpuscular HGB Conc 33 g/dL (31-36); Mean Corpuscular Hemoglobin 27 pg (27-31); Mean Corpuscular Volume 83 fL (80-94); Mean Platelet Volume 7.3 fL (7.4-10.4); Platelet Count 261 10^3/uL (150-450); Red Blood Count 4.53 10^6 /uL (4.18-5.48); Red Cell Distribution Width 16 % (10-15); White Blood Count 6.9 10^3/uL (3.5-10.8)
[2020-01-05 14:54] LABS: Urine Benzodiazepine Screen Presumptive Positive (None Detect); Urine Opiates Screen Presumptive Positive (None Detect)
[2020-01-05 14:59] LABS: Anion Gap 4 mmol/L (2-11); BUN/Creatinine Ratio 23.2 (8-20); Blood Urea Nitrogen 16 mg/dL (6-24); CO2 Carbon Dioxide 30 mmol/L (22-32); Calcium 9.4 mg/dL (8.6-10.3); Chloride 105 mmol/L (101-111); EGFR African American 139.2 (>60); EGFR Non-African American 115.1 (>60); Glucose 88 mg/dL (70-100); Potassium 3.6 mmol/L (3.5-5.0); Sodium 139 mmol/L (135-145)
[2020-01-05 15:21] LABS: Alcohol < 10 mg/dL (<10)
[2020-01-05 15:34] LABS: TSH (Thyroid Stimulating Horm) 0.74 mcIU/mL (0.34-5.60)
[2020-01-05 15:36] LABS: Free T4 0.97 ng/dL (0.61-1.12)
[2020-01-05 20:12] VITALS: BP 134/66
== END 2020-01-05 19:45 | disposition home or self-care (01) ==
LOC: ED 12:42
DX: F32.9 Major depressive disorder, single episode, unspecified (principal); F19.10 Other psychoactive substance abuse, uncomplicated; R53.83 Other fatigue; D64.9 Anemia, unspecified; I25.2 Old myocardial infarction; I10 Essential (primary) hypertension; E78.00 Pure hypercholesterolemia, unspecified; M79.7 Fibromyalgia; Z79.82 Long term (current) use of aspirin; Z79.899 Other long term (current) drug therapy; Z88.2 Allergy status to sulfonamides; Z88.8 Allergy status to other drugs, medicaments and biological substances; Z88.6 Allergy status to analgesic agent; Z91.030 Bee allergy status; Z87.891 Personal history of nicotine dependence
CPT/HCPCS: 36415; 80048; 80307; 80320; 84439; 84443; 85025; 99284; G0480

== ENCOUNTER 2020-01-20 12:29 | Emergency (ER) | payer MEDICARE ==
--- OUTSIDE RECORDS SUMMARY | 2020-01-20 12:51 | XMS REPORT | Continuity of Care Document ---
:1955 External Reference #:[id number] Author Name Ramone Madera MD (transmitted by agent of provider Socorro Crenshaw) Address [address] [place] [address] Problems Active Problems Provider Date Pure hypercholesterolemia [...] Medications SIG Qnty Indications Ordering Date Provider Citalopram 1 by mouth every 90tabs Ramone 01/13/2020 Hydrobromide day MD Santy 20mg Tablets Klonopin 1 tab by mouth four 120tabs Ramone 12/08/2019 1mg Tablets times a day MD Santy Sildenafil Citrate Take 1 To 2 Tablets 30tabs Ramone 03/18/2019 By Mouth 1 Hour MD Santy 20mg Tablets Prior To [place] Aspirin Ec 1 by mouth every 90tabs Jeri Hernandez, 07/15/2015 81mg day [employer] Tablets DR Christiana Hernandez, 07/15/2015 Micronized [employer] 130mg Capsules Nitrostat 1 tab sublingual as 15tabs Jeri Hernandez, 07/15/2015 0.4mg needed for chest [employer] Tablets Sub pain Colchicine take 2 tablets by 30tabs Quita Bowman, 07/15/2015 0.6mg mouth today, then 1 OPTOMETRY DOCTOR Tablets tablet by mouth twice daily x 7 days. Lisinopril Take 1 Tablet By 90tabs Jeri David, 07/15/2015 10mg Mouth Every Day [employer] Tablets Epipen 2-Sandro use as directed 1units Jeri David, 07/04/2015 [employer] 0.3mg/0.3ML Solution Auto-Inject Diazepam 1 tablet at onset Unknown 2mg Tablets of migraine prn. Tylenol 3 - as needed Unknown 325mg Capsules Immunizations CPT Code Status Date Vaccine Lot # [id number] Given 12/20/2019 Prevnar-13 Pneumococcal Conjugate Vaccine [id number] Given 09/22/2019 Influenza Virus Vaccine, Quadrivalent, 3 Yr > Quad, Preserv Free 13185 Given 08/31/2018 Influenza Virus Vaccine, Quadrivalent, 3 Yr > [id number] Quad, Preserv Free 52656 Given 08/12/2017 Influenza Virus Vaccine, Quadrivalent, 3 Yr > [id number] Quad, Preserv Free 03505 Given 09/22/2016 Influenza Virus Vaccine, Quadrivalent, 3 Yr > [id number] Quad, Preserv Free 59916 Given 09/04/2015 Zoster Vaccine [id number] 29921 Given 07/04/2015 Influenza Virus Vaccine, Quadrivalent, 3 Yr > [id number] Quad, Preserv Free Vital Signs Date Vital Result Comment 01/13/2020 1:45pm Weight 170.00 lb Weight 77.112 kg BP Systolic 138 mmHg BP Diastolic 82 mmHg Heart Rate 78 /min Body Temperature 97.7 F Respiratory Rate 16 /min O2 % BldC Oximetry 98 % 12/20/2019 12:48pm Weight 168.00 lb Weight 76.205 kg BP Systolic 102 mmHg BP Diastolic 68 mmHg Heart Rate 60 /min Body Temperature 99.0 F Respiratory Rate 14 /min Height 71 inches 5'11" BMI (Body Mass Index) 23.4 kg/m2 Results Test Acquired Date Facility Test Result H/L Range Note CBC Auto 01/05/2020 [facility] White Blood 6.9 10^3/ uL Normal 3.5-10.8 Diff [phone] Count Red Blood Count 4.53 10^6/uL Normal 4.18-5.48 Hemoglobin 12.4 g/dL Low 14.0-18.0 Hematocrit 37 % Low 42-52 Mean Corpuscular Volume 83 fL Normal 80-94 Mean Corpuscular Hemoglobin 27 pg Normal 27-31 Mean Corpuscular HGB Conc 33 g/dL Normal 31-36 Red Cell Distribution Width 16 % High 10-15 Platelet Count 261 10^3/uL Normal 150-450 Mean Platelet Volume 7.3 fL Low 7.4-10.4 Abs Neutrophils 5.0 10^3/uL Normal 1.5-7.7 Abs Lymphocytes 1.4 10^3/uL Normal 1.0-4.8 Abs Monocytes 0.4 10^3/uL Normal 0-0.8 Abs Eosinophils 0.1 10^3/uL Normal 0-0.6 Abs Basophils 0.1 10^3/uL Normal 0-0.2 Abs Nucleated RBC 0.0 10^3/uL Granulocyte % 71.5 % Lymphocyte % 20.8 % Monocyte % 5.1 % Eosinophil % 1.6 % Basophil % 1.0 % Nucleated Red Blood Cells % 0.0 Urine Drug 01/05/2020 [facility] Urine None Detected None Detect SCR ED & [phone] Amphetamine Pain Clinic Screen Urine Barbiturates Screen None Detected None Detect Urine Benzodiazepine Screen Presumptive Posi <SEE NOTE> Abnormal None Detect 1 Urine Cannabinoids Screen None Detected None Detect Urine Cocaine Screen None Detected None Detect Urine Opiates Screen Presumptive Posi <SEE NOTE> Abnormal None Detect 2 Urine Phencyclidine Screen None Detected None Detect 3 Basic Metabolic 01/05/2020 [facility] Sodium 139 mmol /L Normal 135-145 Panel [phone] Potassium 3.6 mmol/L Normal 3.5-5.0 Chloride 105 mmol/L Normal 101-111 Co2 Carbon Dioxide 30 mmol/L Normal 22-32 Anion Gap 4 mmol/L Normal 2-11 Glucose 88 mg/dL Normal 70-100 Blood Urea Nitrogen 16 mg/dL Normal 6-24 Creatinine 0.69 mg/dL Normal 0.67-1.17 BUN/Creatinine Ratio 23.2 High 8-20 Calcium 9.4 mg/dL Normal 8.6-10.3 Egfr Non- 115.1 >60 Egfr 139.2 >60 4 Laboratory test 01/05/2020 [facility] Alcohol < 10 mg /dL Normal <10 finding [phone] TSH (Thyroid Stimulating Horm) 0.74 mcIU/mL Normal 0.34-5.60 Free T4 0.97 ng/dL Normal 0.61-1.12 Comp Metabolic 12/20/2019 [facility] Sodium 138 mmol/ L Normal 135-145 Panel [phone] Potassium 4.3 mmol/L Normal 3.5-5.0 Chloride 103 mmol/L Normal 101-111 Co2 Carbon Dioxide 27 mmol/L Normal 22-32 Anion Gap 8 mmol/L Normal 2-11 Glucose 78 mg/dL Normal 70-100 Blood Urea Nitrogen 16 mg/dL Normal 6-24 Creatinine 0.73 mg/dL Normal 0.67-1.17 BUN/Creatinine Ratio 21.9 High 8-20 Calcium 9.8 mg/dL Normal 8.6-10.3 Total Protein 6.6 g/dL Normal 6.4-8.9 Albumin 4.3 g/dL Normal 3.2-5.2 Globulin 2.3 g/dL Normal 2-4 Albumin/Globulin Ratio 1.9 Normal 1-3 Total Bilirubin 0.60 mg/dL Normal 0.2-1.0 Alkaline Phosphatase 53 U/L Normal 34-104 Alt 8 U/L Normal 7-52 Ast 14 U/L Normal 13-39 Egfr Non- 107.8 >60 Egfr 130.5 >60 5 CBC Auto 12/20/2019 [facility] White Blood 5.6 10^3/ uL Normal 3.5-10.8 Diff [phone] Count Red Blood Count 4.53 10^6/uL Normal 4.18-5.48 Hemoglobin 12.4 g/dL Low 14.0-18.0 Hematocrit 37 % Low 42-52 Mean Corpuscular Volume 82 fL Normal 80-94 Mean Corpuscular Hemoglobin 27 pg Normal 27-31 Mean Corpuscular HGB Conc 33 g/dL Normal 31-36 Red Cell Distribution Width 16 % High 10-15 Platelet Count 262 10^3/uL Normal 150-450 Mean Platelet Volume 8.1 fL Normal 7.4-10.4 Abs Neutrophils 3.9 10^3/uL Normal 1.5-7.7 Abs Lymphocytes 1.3 10^3/uL Normal 1.0-4.8 Abs Monocytes 0.4 10^3/uL Normal 0-0.8 Abs Eosinophils 0.1 10^3/uL Normal 0-0.6 Abs Basophils 0.1 10^3/uL Normal 0-0.2 Abs Nucleated RBC 0.0 10^3/uL Granulocyte % 68.4 % Lymphocyte % 22.9 % Monocyte % 6.5 % Eosinophil % 1.0 % Basophil % 1.2 % Nucleated Red Blood Cells % 0.0 Laboratory test 12/20/2019 [facility] PSA Screening 1.034 Normal 0-4.000 6 finding [phone] ng/mL 1 Presumptive Positive Presumptive positive results are unconfirmed. 2 Presumptive Positive Presumptive positive results are unconfirmed. 3 The urine specimen was tested at the listed cutoffs: Drug class test level (ng/mL) Amphetamines 500 Barbiturates 200 Benzodiazepine metabolites 200 Cocaine metabolites 150 Cannabinoids 50 Opiates 300 Pcp 25 Specimen was received without chain of custody. Results should be used for medical purposes only. 4 Because ethnic data is not always readily available, this report includes an eGFR for both -Americans and non- Americans. The National Kidney Disease Education Program (NKDEP) does not endorse the use of the MDRD equation for patients that are not between the ages of 18 and 70, are , have extremes of body size, muscle mass, or nutritional status, or are non- or non-. According to the National Kidney Foundation, irrespective of diagnosis, the stage of the disease is based on the level of kidney function: Stage Description GFR(mL/min/1.73 m(2)) 1 Kidney damage with normal or decreased GFR 90 2 Kidney damage with mild decrease in GFR 60-89 3 Moderate decrease in GFR 30-59 4 Severe decrease in GFR 15-29 5 Kidney failure <15 (or dialysis) 5 Because ethnic data is not always readily available, this report includes an eGFR for both -Americans and non- Americans. The National Kidney Disease Education Program (NKDEP) does not endorse the use of the MDRD equation for patients that are not between the ages of 18 and 70, are , have extremes of body size, muscle mass, or nutritional status, or are non- or non-. According to the National Kidney Foundation, irrespective of diagnosis, the stage of the disease is based on the level of kidney function: Stage Description GFR(mL/min/1.73 m(2)) 1 Kidney damage with normal or decreased GFR 90 2 Kidney damage with mild decrease in GFR 60-89 3 Moderate decrease in GFR 30-59 4 Severe decrease in GFR 15-29 5 Kidney failure <15 (or dialysis) 6 Serum levels of PSA measured using the Nicolasa Kennedy DXI Hybritech immunoassay should not be interpreted as absolute evidence of the presence or absence of disease. The PSA value should be used in conjunction with other pertinent clinical diagnostic procedures. The values obtained with different assay methods or kits cannot be used interchangeably. Procedures Description No Information Available Medical Devices Description No Information Available Encounters Type Date Location Provider Dx Diagnosis Office Visit 01/13/2020 Main Office Ramone [email or web address] Chronic fatigue, 2:15p MD Santy unspecified Office Visit 12/08/2019 [facility] Ramone F41.9 Anxiety disorder, 9:45a MD Santy unspecified R53.82 Chronic fatigue, unspecified Assessments Date Code Description Provider 01/13/2020 R53.82 Chronic fatigue, unspecified Ramone Madera MD 12/20/2019 Z00.00 Encounter for general adult medical Ramone Madera MD examination without abnormal findings 12/20/2019 R53.82 Chronic sonido, kartik Madera MD 12/20/2019 N40.1 Benign prostatic hyperplasia with lower Ramone Madera MD urinary tract symptoms 12/20/2019 Z23 Encounter for immunization Ramone Madera MD 12/08/2019 F41.9 Anxiety disorder, robertified Ramone Madera MD 12/08/2019 R53.82 Chronic fatigue, unspecified Ramone Madera MD Plan of Treatment 01/13/2020 - Ramone Madera MDR53.82 Chronic fatigue, unspecifiedComments: Overall he is generally not doing very well. I have not heard any symptoms that specifically would make me worry about him having "mini strokes".He is on a broad variety of different medications and has several mental health issues, which I think is more related to his change in personality and energy levels.We are still trying to get him established with a new psychiatrist. Functional Status Description No Information Available Mental Status Description No Information Available Referrals Refer to Reason for Referral Status Appt Date Liban Pak Refer to neurology for daytime sleepiness. - - Scheduled 03/22/2020 Please contact Pt to schedule appt. - - Please fax appointment date/time to [facility], [place] [address] [phone]
--- NOTE | 2020-01-20 14:33 | ED ---
Psychiatric Complaint - HPI Summary HPI Summary: 64 year old M referred to [facility] by his primary care provider complains of worsening paranoid thoughts. Patient had been seeing Dr. Arechiga, psychiatry, until the end of Oct 2019, who was prescribing patient Klonopin 2 mg 3 TID. Patient stopped seeing this psychiatrist. His primary care provider, Dr. Madera, lowered his Klonopin to 1 mg QID. Since then, patient has been having worsening paranoid thoughts. He has been seeing [facility] who is helping him find new psychiatrist. He has yet to establish new psychiatrist. Medications reviewed. Allergies noted. - History Of Current Complaint Chief Complaint: EDPsychosocial Time Seen by Provider: 01/20/20 14:25 Hx Obtained From: Patient Onset/Duration: Still Present Timing: Constant Severity Currently: None Aggravating Factor(s): Nothing Alleviating Factor(s): Nothing - Allergies/Home Medications Allergies/Adverse Reactions: Allergies Allergy/AdvReac Type Severity Reaction Status Date / Time fluoxetine [From Prozac] Allergy manic Verified 01/20/20 12:36 behavior NSAIDS (Non-Steroidal Allergy doesn't Verified 01/20/20 12:36 Anti-Inflamma take D/T bleeding risk Sulfa (Sulfonamide Allergy Unknown Verified 01/20/20 12:36 Antibiotics) Reaction Details ziprasidone [From Geodon] Allergy See Comment Verified 01/20/20 12:36 bees Allergy Anaphylatic Uncoded 01/20/20 12:36 Shock Home Medications: Home Medications HydroCODONE/Acetamin 10/325 NF [[place] 10/325 (NF)] 1 tab PO BID PRN MDD 2 [History Confirmed 01/20/20] Citalopram TAB* [CeleXA TAB*] 20 mg PO DAILY 01/20/20 [History Confirmed ] clonazePAM TAB(*) [KlonoPIN TAB(*)] 1 mg PO QID 01/20/20 [History Confirmed ] PMH/Surg Hx/FS Hx/Imm Hx Endocrine/Hematology History: Reports: Other Endocrine/Hematological Disorders - Anemia Denies: Hx Anticoagulant Therapy, Hx Diabetes, Hx Thyroid Disease Cardiovascular History: Reports: Hx Hypercholesterolemia, Hx Hypertension, Hx Myocardial Infarction, Other Cardiovascular Problems/Disorders - Anemia; Unable to take NSAIDS d/t bleeding Respiratory History: Denies: Hx Asthma, Hx Chronic Obstructive Pulmonary Disease (COPD) History: Reports: Hx Benign Prostatic Hyperplasia, Other Problems/ Disorders - Erectile dysfunction Musculoskeletal History: Reports: Hx Arthritis, Hx Fibromyalgia, Hx Orthopedic Injury, Other Musculoskeletal History - disc herniation; shoulder injury Sensory History: Reports: Hx Contacts or Glasses, Hx Hearing Aid Opthamlomology History: Reports: Hx Contacts or Glasses Neurological History: Reports: Hx Migraine, Other Neuro Impairments/Disorders - FIBROMYALGIA Psychiatric History: Reports: Hx Depression, Hx Post Traumatic Stress Disorder, Hx Bipolar Disorder Denies: Hx Schizophrenia, Hx Suicide Attempt - Surgical History Surgery Procedure, Year, and Place: spinal stenosis - surgical repair 2001 L3- l5 ( LAMINECTOMY & MICRO DISCETOMY- 2013 @ [facility]). Rt SHOULDER - BONE SPUR REMOVED - 2011. Rt HAND - OSTEO ARTHRITIS- BASE OF THUMB EARLY 2015. SADIE KNEES - ARTHROSCOPIC. heart attack w/ stents 2006 Infectious Disease History: No Infectious Disease History: Reports: Hx of Known/Suspected MRSA Denies: Hx Clostridium Difficile, Hx Hepatitis, Hx Human Immunodeficiency Virus (HIV), Traveled Outside the [place] in Last 30 Days - Family History Known Family History: Positive: Diabetes - Social History Alcohol Use: Occasionally Alcohol Amount: 2 drinks per week Hx Substance Use: Yes Substance Use Comment - Amount & Last Used: takes prescribed pain meds Hx Tobacco Use: Yes Smoking Status (MU): Former Smoker Have You Smoked in the Last Year: No Review of Systems Negative: Fever Positive: Other - paranoid thoughts All Other Systems Reviewed And Are Negative: Yes Physical Exam - Summary Physical Exam Summary: General: Well appearing, no distress HEENT: PERRL Cardiovascular: Skin is well perfused Pulmonary: No respiratory distress, no tachypnea Abdomen: Non-distended Skin: Warm, pink, dry MSK: No edema Psych: Normal affect Neuro: A&Ox3 Triage Information Reviewed: Yes Vital Signs On Initial Exam: Initial Vitals Temp Pulse Resp BP Pulse Ox 98.9 F 61 16 139/84 97 01/20/20 12:33 01/20/20 12:33 01/20/20 12:33 01/20/20 12:33 01/20/20 12:33 Vital Signs Reviewed: Yes Procedures - Sedation Patient Received Moderate/Deep Sedation with Procedure: No Diagnostics - Vital Signs Vital Signs Temp Pulse Resp BP Pulse Ox 01/20/20 12:33 98.9 F 61 16 139/84 97 - Laboratory Lab Statement: Any lab studies that have been ordered have been reviewed, and results considered in the medical decision making process. Re-Evaluation - Re-Evaluation First Eval Re-Evaluation Time: 14:44 Change: Unchanged - patient understands and agrees to d/c instructions Course/Dx - Course Course Of Treatment: 64 y/o male presenting for medication adjustment. D/w psychiatry who does not recommend increasing dose and recommends he follows up w [facility]. - Differential Dx/Clinical Impression Provider Diagnosis: Anxiety - Physician Notifications Discussed Care Of Patient With: Gary Murry - He does not suggest changing medications. He [facility] Time Discussed With Above Provider: 14:34 Discharge ED - Sign-Out/Discharge Documenting (check all that apply): Patient Departure - Discharge Plan Condition: Stable Disposition: HOME Patient Education Materials: Anxiety (ED) Referrals: Ramone Madera MD [Primary Care Provider] - [facility] [Next audience, APPLICATION, OTHER] - Additional Instructions: You were seen in the emergency department for medication change. We discussed your case with our forward air controller/air officer pyschiatrist who recommended you follow up with [facility] Please follow up with your primary care doctor in next 2-3 days and return to emergency department for worsening or concerning symptoms. It was a pleasure taking care of you today. - Billing Disposition and Condition Condition: STABLE Disposition: Home - Attestation Statements Document Initiated by Bhumie: Yes Documenting Scribe: Beena Aguilar Provider For Whom Charles is Documenting (Include Credential): Scarlett Son MD Scribe Attestation: I, Beena Aguilar, scribed for Scarlett Son MD on 01/20/20 at 1452. Scribe Documentation Reviewed: Yes Provider Attestation: The documentation as recorded by the Beena harrison accurately reflects the service I personally performed and the decisions made by me, Scarlett Son MD Status of Scribe Document: Viewed
[2020-01-20 14:56] VITALS: BP 140/80
== END 2020-01-20 14:54 | disposition home or self-care (01) ==
LOC: ED 12:29
DX: F41.9 Anxiety disorder, unspecified (principal); F23 Brief psychotic disorder; N40.0 Benign prostatic hyperplasia without lower urinary tract symptoms; F43.10 Post-traumatic stress disorder, unspecified; F31.9 Bipolar disorder, unspecified; E78.00 Pure hypercholesterolemia, unspecified; I10 Essential (primary) hypertension; I25.2 Old myocardial infarction; Z87.891 Personal history of nicotine dependence; Z88.2 Allergy status to sulfonamides
CPT/HCPCS: 99282